=== PATIENT | male | born 1990 | race Caucasian/White ===

== ENCOUNTER 2017-10-19 14:36 | Emergency (ER) | payer SELFPAY ==
[~2017-10-19] VITALS: Ht 180.3 cm; Wt 143.0 kg
[2017-10-19 14:45] VITALS: BP 149/88
[2017-10-19] MEDS ORDERED: LIDODERM 5% PATCH TD ONE (15:30)
[2017-10-19] MEDS ORDERED: KETOROLAC 30 MG/1 ML IM ONE (15:30)
[2017-10-19] MEDS ORDERED: METHOCARBAMOL 750 MG TABLET PO ONE (15:30)
[2017-10-19] MEDS ORDERED: KETOROLAC 30 MG/1 ML ONE (15:34)
[2017-10-19] MEDS ORDERED: METHOCARBAMOL 750 MG TABLET ONE (15:34)
== END 2017-10-19 16:17 | disposition home or self-care (01) ==
LOC: ED 16:11
DX: S39.012A Strain of muscle, fascia and tendon of lower back, initial encounter (principal); X58.XXXA Exposure to other specified factors, initial encounter; Y93.89 Activity, other specified; Y99.8 Other external cause status; Y92.89 Other specified places as the place of occurrence of the external cause
CPT/HCPCS: 72110; 96372; 99284; J1885

== ENCOUNTER 2019-11-23 10:22 | Emergency (ER) | payer OTHER ==
[~2019-11-23] VITALS: Ht 182.9 cm; Wt 150.0 kg
[2019-11-23] MEDS ORDERED: ACETAMINOPHEN 500 MG TABLET PO ONE (11:00)
[2019-11-23] MEDS ORDERED: IBUPROFEN 800 MG TABLET ONE (11:00)
[2019-11-23] MEDS ORDERED: IBUPROFEN 600 MG TABLET PO ONE (11:00)
[2019-11-23] MEDS ORDERED: ACETAMINOPHEN 500 MG TABLET ONE (11:00)
[2019-11-23] MEDS ORDERED: SODIUM CHLORIDE 0.9% 1,000ML IVBOLUS ONE (11:00)
[2019-11-23 11:24] LABS: BASOPHILS # (AUTO) 0.02 x10^3/uL (0-0.1); BASOPHILS % (AUTO) 0 % (0-1); EOSINOPHILS # (AUTO) 0.03 x10^3/uL (0-0.4); EOSINOPHILS % (AUTO) 0 % (1-7); LYMPHOCYTES # (AUTO) 1.67 x10^3/uL (1-3.4); LYMPHOCYTES % (AUTO) 23 % (22-44); MD NO; MEAN CORPUSCULAR HEMOGLOBIN 29.1 pg (27.5-34.5); MEAN CORPUSCULAR VOLUME 88.3 fL (81-97); MEAN PLATELET VOLUME 9.9 fL (7.4-10.4); MONOCYTES # (AUTO) 0.65 x10^3/uL (0.2-0.8); MONOCYTES % (AUTO) 9 % (2-9); NEUTROPHILS # (AUTO) 4.83 x10^3/uL (1.8-6.8); NEUTROPHILS % (AUTO) 67 % (42-75); PLATELET COUNT 199 x10^3/uL (130-400); RED CELL DISTRIBUTION WIDTH 13.7 % (9.4-14.8)
[2019-11-23 11:36] LABS: ALBUMIN 3.9 g/dL (3.4-5.0); ANION GAP 8 mmol/L (5-15); CALCIUM 9.3 mg/dL (8.5-10.1); CHLORIDE 104 mmol/L (98-107); CREATININE 0.91 mg/dL (0.7-1.3)
[2019-11-23 12:53] VITALS: BP 124/74
== END 2019-11-23 12:55 | disposition home or self-care (01) ==
LOC: ED 11:53
DX: J18.0 Bronchopneumonia, unspecified organism (principal); R50.9 Fever, unspecified; R05 Cough; R11.2 Nausea with vomiting, unspecified
CPT/HCPCS: 36415; 71045; 80048; 82040; 83605; 84145; 85025; 96360; 96361; 99284; J7030